=== PATIENT | female | born 1995 | race Two or more races ===

== ENCOUNTER 2018-10-17 01:04 | Emergency (ER) | payer MEDICAID ==
[~2018-10-17] VITALS: Ht 172.7 cm; Wt 63.5 kg
--- NOTE | 2018-10-17 01:15 | NUR ---
[id number] FROM HOME C/C AGGRESIVE BEHAVIOR AND POSSIBLE OD.PT VERY AGRESSIVE AND COMBATIVE , UNABLE TO PROVIDE ANY INFORMATION AT THIS TIME. PT REMAINED IN [place] UNDER SUPERVISION OF [employer] STAFF. PT REFUSING VITAL SIGN CHECK,
[2018-10-17] MEDS ORDERED: LORAZEPAM INJ 2 MG/ML VIAL ONE (01:32)
[2018-10-17 01:54] LABS: BASOPHILS # (AUTO) 0.1 /CMM (0.0-0.2); BASOPHILS % (AUTO) 0.7 % (0.0-2.0); EOSINOPHILS % (AUTO) 0.4 % (0.0-6.0); HEMATOCRIT 41 % (33-45); HEMOGLOBIN 13.7 g/dL (11.5-14.8); MEAN CORPUSCULAR HGB CONC 33 g/dl (31.0-36.0); MEAN CORPUSCULAR VOLUME 93 fL (82-100); MONOCYTES # (AUTO) 0.4 /CMM (0.1-1.30); MONOCYTES % (AUTO) 5.4 % (2.0-12.0); NEUTROPHILS # (AUTO) 5.3 /CMM (1.8-8.9); NEUTROPHILS % (AUTO) 67.5 % (43.0-81.0); PLATELET COUNT (AUTO) 175 /CMM (150-450); RED BLOOD CELL COUNT(AUTO) 4.45 MIL/uL (4.0-5.2); WHITE BLOOD COUNT (AUTO) 7.8 K/uL (4.3-11.0)
[2018-10-17] MEDS ORDERED: LORAZEPAM INJ 2 MG/ML VIAL IM ONE (02:00)
[2018-10-17 02:02] LABS: CALCIUM, SERUM 8.9 mg/dL (8.5-10.1); CREATININE 1.2 mg/dL (0.6-1.3); POTASSIUM 3.5 mmol/L (3.5-5.1)
[2018-10-17 02:14] LABS: ALBUMIN 4.3 g/dL (3.4-5.0); BILIRUBIN,DIRECT 0.1 mg/dL (0.0-0.2); BILIRUBIN,TOTAL 0.3 mg/dL (0.2-1.0); SALICYLATE 0.5 mg/dL (2.8-20.0); TOTAL PROTEIN, SERUM 7.3 g/dL (6.4-8.2)
[2018-10-17 02:19] LABS: CREATINE KINASE, TOTAL 216 U/L (26-192)
[2018-10-17] MEDS ORDERED: HALOPERIDOL LACTATE INJ 5 MG/ML VIAL ONE (02:46)
[2018-10-17] MEDS ORDERED: HALOPERIDOL LACTATE INJ 5 MG/ML VIAL IM ONE (03:00)
--- NOTE | 2018-10-17 04:14 | NUR ---
Patient is resting comfortably in bed with eyes closed. Easily aroused. VSS. [employer] remained at the bed side.
[2018-10-17 07:30] VITALS: BP 123/96
--- NOTE | 2018-10-17 07:30 | NUR ---
PT DISCHAGED IN CUSTODY OF [employer] IN STABLE CONDITION. PT AMBULATORY WITH STEADY GAIT.
== END 2018-10-17 07:31 ==
LOC: ER 01:06
DX: F10.129 Alcohol abuse with intoxication, unspecified (principal); R45.1 Restlessness and agitation; Y90.8 Blood alcohol level of 240 mg/100 ml or more
CPT/HCPCS: 36415; 80048; 80076; 80307; 80329; 82550; 84702; 85025; 96372 ×2; 99283; G0480; J1630; J2060